=== PATIENT | male | born 1935 | race Caucasian/White ===

== ENCOUNTER → 2018-11-05 | Outpatient (CLI) | payer MEDICARE, BC ==
[~2018-11-05] MED LIST: ALDA25TA2 PO; AMLO5TAB6 PO; ASPI81TA85 PO; BAYE325T12 PO; CARV12.5 PO; CARV6.25 PO; CO Q200C10 PO; IRBE300T10 PO; OMEG12002 PO; VITA200015 PO
[2018-11-05 19:53] LABS: ALBUMIN 3.9 GM/DL (3.2-5.2); BILIRUBIN,DIRECT 0.2 MG/DL (0.0-0.2); BILIRUBIN,TOTAL 0.7 MG/DL (0.2-1.0); CHOLESTEROL RISK RATIO 3.086 (<5); THYROID STIMULATING HORMONE 1.47 uIU/ML (0.358-3.740); TOTAL PROTEIN 6.9 GM/DL (6.4-8.2)
== END ==
LOC: M ADAMS 16:20
PROVIDERS: ATTEND Internal Medicine Cardiovascular Disease
DX: E78.00 Pure hypercholesterolemia, unspecified (principal)

== ENCOUNTER → 2019-04-28 | Outpatient (REF) | payer MEDICARE, BC ==
[~2019-04-28] MED LIST changes: +ATOR40TA75 PO; +NIFE30TA7 PO; +OMEP40CA2 PO
[2019-04-28 15:05] LABS: CALCIUM LEVEL 9.4 MG/DL (8.8-10.2); CREATININE FOR GFR 1.25 MG/DL (0.70-1.30); MAGNESIUM LEVEL 2.1 MG/DL (1.8-2.4); PHOSPHORUS LEVEL 3.8 MG/DL (2.5-4.9); POTASSIUM SERUM 4.3 MEQ/L (3.5-5.1)
== END ==
LOC: M LABDRWAD 12:11
PROVIDERS: ATTEND Internal Medicine Cardiovascular Disease
DX: I11.9 Hypertensive heart disease without heart failure (principal)

== ENCOUNTER 2019-05-10 12:54 | Day surgery (SDC) | payer MEDICARE, BC ==
[~2019-05-10] VITALS: Ht 183.1 cm; Wt 73.0 kg
[2019-05-10] MEDS ORDERED: AMIODARONE HCL 360 MG/200 ML PREMIXED BAG (NEXTERONE) As Ordered ONE (13:23)
[2019-05-10] MEDS ORDERED: LIDOCAINE 1% SDV INJ 30 ML VIAL As Ordered ONE (13:23)
[2019-05-10] MEDS ORDERED: BACITRACIN PWD 50,000 UNITS VIAL As Ordered ONE (13:24)
[2019-05-10] MEDS ORDERED: ISOVUE-300 61% 50ML VIAL (Q9967) As Ordered ONE (13:24)
[2019-05-10] MEDS ORDERED: fentaNYL 100 MCG/2 ML INJECTION (J3010) As Ordered ONE (13:29)
[2019-05-10] MEDS ORDERED: ONDANSETRON 4MG/2ML VIAL (J2405) As Ordered ONE (13:29)
[2019-05-10] MEDS ORDERED: PROPOFOL 200 MG/20 ML VIAL As Ordered ONE (13:29)
[2019-05-10] MEDS ORDERED: LIDOCAINE 2% INJ 100 MG/5 ML SDV (FOR ANES.) As Ordered ONE (13:29)
[2019-05-10] MEDS ORDERED: MIDAZOLAM INJ 2 MG/2 ML VIAL (J2250) As Ordered ONE (13:29)
[2019-05-10] MEDS ORDERED: XALA0.007 OU (13:41)
[2019-05-10] MEDS ORDERED: BRIM1OPD OU (13:41)
[2019-05-10] MEDS ORDERED: VALS1TAB67 PO (13:41)
[2019-05-10] MEDS ORDERED: MULT-40 PO (13:41)
[2019-05-10] MEDS ORDERED: CLOP75TA2 PO (13:41)
[2019-05-10] MEDS ORDERED: VALS1TAB68 PO (13:41)
[2019-05-10] MEDS ORDERED: ONDANSETRON 4MG/2ML VIAL (J2405) IV PRN (18:15)
[2019-05-10] MEDS ORDERED: NITROGLYCERIN 0.4 MG SUBL TABLET SL PRN (18:15)
[2019-05-10] MEDS ORDERED: ACETAMINOPHEN TAB 650MG DOSE (2X325MG) PO PRN (18:15)
[2019-05-10] MEDS ORDERED: fentaNYL 100 MCG/2 ML INJECTION (J3010) IV PRN (18:15)
[2019-05-10] MEDS ORDERED: traMADol 50 MG TAB PO PRN (18:15)
[2019-05-10] MEDS ORDERED: LR 1,000 ML IV SCH (18:15)
[2019-05-10 18:35] VITALS: BP 161/84
--- NOTE | 2019-05-10 19:42 | RO ---
DATE OF PROCEDURE: 05/10/2019 PREOPERATIVE DIAGNOSIS: 1. Recurrent near syncope and sinus node dysfunction. 2. Frequent isolated PVCs. POSTOPERATIVE DIAGNOSIS 1. Recurrent near syncope and sinus node dysfunction. 2. Frequent isolated PVCs. OPERATIVE PROCEDURE: Implantation of permanent dual-chamber pacemaker. IMPLANTING STRUCTURAL STEEL TRADES WORKER: Shayan Denton MD ANESTHESIOLOGIST: Ricardo Peterosn MD TYPE OF ANESTHESIA: Monitored local anesthesia. CLINICAL SUMMARY This 83-year-old retired resident of [place] is well-known to my cardiology practice with ischemic, hypertensive and coronary heart disease complicated by abnormal EKG, frequent isolated PVCs (441 per hour October 2018) and sinus node dysfunction with marked sinus bradycardia who has been having recurrent episodes of near-syncope/syncope that have been fairly random. He has not fallen, but presented for follow-up visit in the office today complaining of this symptom. His heart rate was determined to be 42 beats per minute and regular. In light of his symptoms, marked sinus bradycardia and frequent PVCs implantation of permanent dual-chamber pacemaker was recommended. He has been free of other cardiovascular complaints on his current combination medical therapy. On examination, he is a somewhat slim elderly male laying comfortably on examination table. Heart rate 42 bpm and regular with irregularities. Blood pressure 148/68 supine, 146/62 sitting with legs dependent, respiratory rate 16 bpm. BMI was 21.5. Well tanned. No pallor or icterus. Normal oral moisture. Trachea midline. Jugular veins were not elevated. Slight pectus excavatum, but normal chest expansion and air entry over both lung jara with no adventitious sounds. Apical impulse was at the mid clavicular line fifth intercostal space. Heart sounds were quite distant with no audible gallops. No audible murmur. Normal carotid upstroke and volume. Normal peripheral pulses with no dependent edema. His abdomen was soft. EKG showed marked sinus bradycardia at 49 bpm with left atrial conduction disturbance, low voltages with slow R wave progression related to his body habitus versus pulmonary disease. Nonspecific ST/T-wave abnormalities that were not significantly changed from April 20, 2019. Recent chemistry showed electrolyte balance with BUN of 23, creatinine 1.25, albumin was 4.0, magnesium 2.1. Pro BNP level was normal at 144. Ultra sensitive TSH recently measured was normal. DESCRIPTION OF PROCEDURE Following informed consent with the patient in the fasting state having received Ancef 2 grams IV premedication, he was taken to the operating theater. Numerous skin electrodes were applied to facilitate continuous electrocardiographic monitoring. The left subclavian region was prepped and draped in the usual fashion. Skin was infiltrated with 1% Xylocaine and the left axillary vein was catheterized using the micropuncture technique. Two bipolar screw-in active fixation steroid eluting pacing leads were then advanced to the right ventricular apex and high right atrial appendage under fluoroscopic and electrocardiographic control. The ventricular lead ([employer], model #[id number], serial number [id number]) as stimulation threshold 0.9V / 0.4 ms / impedance 659 ohms. The R wave amplitude measured 8.1 mV. The atrial lead ([employer] model number [id number]/[id number], serial number [id number]) measurements were: Stimulation threshold 1.1V / 0.4 ms / impedance 457 ohms / P wave amplitude measured 2.3 mV. These leads were secured in position with sleeves sutured through the insertion site. They were then connected to an MRI compatible dual-chamber pulse generator ([employer], model # [id number], serial number [id number]) and appropriate DDD pacing was documented. The rate responsive feature of his device will be activated postoperatively. The device was then placed in the pocket and secured in position with a suture through the upper right-hand corner of the epoxy header. The subcutaneous tissues were approximated using a running chromic suture and the skin was closed using paco. A dry dressing was applied and the patient returned to the recovery room in good condition. Postoperative portable upright chest x-ray showed good lead placement with no pneumothorax. His EKG confirmed consistent atrially paced rhythm with spontaneous AV conduction. QRS complexes and repolarization appearance was unchanged from earlier this same day. Our plan is to monitor him overnight on telemetry and he will receive an additional three doses of Ancef IV every 8 hours. We anticipate his probable discharge tomorrow afternoon.
[2019-05-10 20:00] VITALS: BP 164/70
[2019-05-10] MEDS: BRIMONIDINE 0.1% OPHTH SOLN 5 ML OU SCH (20:43)
[2019-05-10] MEDS ORDERED: LATANOPROST 0.005% OPHTH SOLN 2.5 ML OU SCH (21:00)
[2019-05-10] MEDS ORDERED: ATORVASTATIN 20 MG TAB PO SCH (21:00)
[2019-05-10] MEDS ORDERED: VALSARTAN 80 MG TAB (DIOVAN) PO SCH (21:00)
--- NOTE | 2019-05-10 21:11 | REP ---
Chest x-ray: Single view. History: Post pacemaker implant. Findings: Portable chest x-ray demonstrates a bipolar pacemaker installed via the left side. There is no evidence of pneumothorax or hydrothorax. Heart is not enlarged. Lung jara are clear. Impression: Left sided transvenous pacemaker in place. No complication seen. Electronically Signed by Yohannes Still MD 05/10/2019 09:24 P
[2019-05-10] MEDS: ceFAZolin SOD 1 GM in D5W MINI-BAG PLUS 50 ML IV SCH (22:58)
[2019-05-10 23:59] VITALS: BP 123/67
[2019-05-11 04:00] VITALS: BP 133/64
[2019-05-11] MEDS: ceFAZolin SOD 1 GM in D5W MINI-BAG PLUS 50 ML IV SCH ×2 (06:42→14:54)
[2019-05-11 08:00] VITALS: BP 121/62
[2019-05-11 08:34] VITALS: BP 121/62
[2019-05-11] MEDS: BRIMONIDINE 0.1% OPHTH SOLN 5 ML OU SCH (08:34)
[2019-05-11] MEDS ORDERED: CLOPIDOGREL 75 MG TAB PO SCH (09:00)
[2019-05-11] MEDS ORDERED: ASPIRIN 81 MG CHEW TABLET PO SCH (09:00)
[2019-05-11] MEDS ORDERED: VALSARTAN 80 MG TAB (DIOVAN) PO SCH (09:00)
--- NOTE | 2019-05-11 10:12 | REP ---
REASON FOR EXAM: Postop pacemaker insertion. COMPARISON: 04/30/2019. There is a dual chamber bipolar pacemaker device in place. The leads are appropriate and contiguous in appearance and unchanged. The cardiomediastinal silhouette is unchanged. No new abnormal lung opacities have developed. The pleural angle remain sharp. The osseous structures are stable and intact. IMPRESSION: Status-post pacemaker insertion. There is no acute cardiopulmonary disease. Electronically Signed by Chase Fang DO 05/11/2019 03:28 P
[2019-05-11 12:00] VITALS: BP 80/40
[2019-05-11 13:00] VITALS: BP 114/42
[2019-05-11 16:00] VITALS: BP 117/63
[2019-05-11] MEDS ORDERED: VALS1TAB68 PO (17:07)
[2019-05-11] MEDS ORDERED: VALS1TAB67 PO (17:09)
--- NOTE | 2019-05-11 17:50 | IPN ---
DATE: 05/11/2019 CARDIOLOGY PROGRESS NOTE SUBJECTIVE: The patient has been up today ambulating without lightheadedness, dyspnea or chest discomfort. Has had only minimal incisional discomfort. Anxious to be discharged home. OBJECTIVE: Pleasant, slim elderly male laying comfortably. Heart rate 60 bpm and regular, blood pressure 117/63. Respiratory rate 16 per minute, O2 saturation 97% on room air. Afebrile. No pallor or cyanosis. Normal oral moisture. Trachea midline. Neck veins were not elevated. Slim with increased anteroposterior chest diameter, but adequate chest expansion. His incision is healing well with some ecchymosis related to his combination aspirin and Plavix therapies. No dependent edema. PRECISION LAYOUT WORKER: It shows mostly atrially paced rhythm with spontaneous AV conduction. Has not had pacemaker mediated tachycardia since last evening when I reprogrammed his post ventricular atrial refractory. A very brief run of nonsustained PSVT was observed and was asymptomatic. CHEST X-RAY: PA and left lateral study taken earlier today was reviewed independently and shows stable lead position with no pneumothorax. Lung jara are hyperinflated with no infiltrate or pleural effusion. EKG: Tracing reviewed earlier today shows consistent atrially paced rhythm at 65 bpm with spontaneous AV conduction. QRS complexes did not appear changed from his prior tracing yesterday. COMPLETE PACEMAKER INTERROGATION: This showed excellent intracardiac electrograms and pacing thresholds. He has ample battery voltage. We did increase his low pacing rate to 70 beats per minute. He remains with his rate response intact. Has AV delays programmed 150 milliseconds for sensing and 204 pacing with intrinsic conduction search up to 200 milliseconds to preserve spontaneous AV conduction as much as possible. IMPRESSION/PLAN: 1. Sinus node dysfunction: Has been up and ambulating without any further problems with positional lightheadedness with his normal physiological heart rate. His pacemaker is functioning appropriately and incision is healing properly. We did make a subtle program change today. 2. Frequent isolated PVCs: With his restored physiological heart rate, we have noticed considerably less ectopic activity. 3. Abnormal EKG /CABG/post PTCA: Has been up ambulating without anginal chest discomfort. Serial EKGs do not show any repolarization changes with his increased rate. Remains on protective combination angiotensin receptor carrie, statin therapy and aspirin with Plavix. 4. Hypertensive heart disease (benign without heart failure): No symptoms or signs of congestion. Current blood pressure is well-controlled. Prior problem with systolic hypertension has resolved with physiological heart rate. Chest x-ray Shows clear lung jara. At this point we will allow him to go home. We have encouraged him to perform activities of daily living except for light activities with his left arm and avoiding getting his incision wet until his paco are removed in our office in 7 to 10 days time. His diet will continue, no added salt, low fat, low cholesterol. Medications will now be: valsartan 160 mg by mouth twice a day, atorvastatin 40 mg at bedtime (q.h.s.), aspirin 81 mg daily, clopidogrel 75 mg daily, multivitamin one tablet twice a day, omega fatty acid 1 capsule daily, vitamin D3 5000 units daily with Alphagan 0.1% eye drops 1 drop each eye daily and Xalatan 0.005% eye drops 1 drop each eye at bedtime (q.h.s.). We have encouraged his contacting us should he notice any abnormal erythema, swelling or discharge. ROSALINO
--- NOTE | 2019-05-13 15:45 | ECGEPIP ---
[facility] Test Date: 2019-05-10 Pat Name: ORVILLE PUGA Department: Room: - Gender: Male Ophthalmic Aide: : 1935 Requested By: Shayan Denton Order Number: [id number] Reading MD: Haroldo Burris Measurements Intervals [place] Rate: 65 P: 78 ID: [id number] QRS: 23 QRSD: 90 T: 48 QT: 409 QTc: 428 Interpretive Statements ELECTRONIC ATRIAL PACEMAKER PRIOR TRACING IN THE SYSTEM ON 09/06/2016 AT 15:55, SINUS BRADYCARDIA AT 43 BEATS PER MINUTE WAS NOTED Electronically Signed on 05-13-2019 15:45:26 EDT by Haroldo Burris
--- NOTE | 2019-05-13 15:46 | ECGEPIP ---
[facility] Test Date: 2019-05-11 Pat Name: ORVILLE PUGA Department: Room: [place] [address] Gender: Male School Psychologist Assistant: STELLA : 1935 Requested By: Shayan Denton Order Number: [id number] Reading MD: Haroldo Burris Measurements Intervals [place] Rate: 62 P: 66 [place]: 166 QRS: 58 QRSD: 90 T: 54 QT: 382 QTc: 390 Interpretive Statements SINUS RHYTHM WITH OCCASIONAL VENTRICULAR PREMATURE COMPLEXES MOST RECENT TRACING ON 05/10/2019 AT 18:12. ATRIAL PACEMAKER ACTIVITY WAS PRESENT Electronically Signed on 05-13-2019 15:46:34 EDT by Haroldo Burris
== END 2019-05-11 17:49 | disposition home or self-care (01) ==
LOC: M SDC 12:54 → M PCU 18:35 → M SDC 05-11 17:49
PROVIDERS: ATTEND Internal Medicine Cardiovascular Disease
DX: I49.5 Sick sinus syndrome (principal); I49.49 Other premature depolarization; I25.10 Atherosclerotic heart disease of native coronary artery without angina pectoris; I10 Essential (primary) hypertension; E78.49 Other hyperlipidemia; Z79.82 Long term (current) use of aspirin; Z79.01 Long term (current) use of anticoagulants; Z79.899 Other long term (current) drug therapy
CPT/HCPCS: 33208; 71045; 71046; 76000; 93005; 96365; 96366; C1785; C1898; J0690; J2250; J2405; J3010

== ENCOUNTER → 2019-05-15 | Outpatient (REF) | payer MEDICARE, BC ==
[~2019-05-15] MED LIST changes: +BRIM1OPD OU; +CLOP75TA2 PO; +MULT-40 PO; +VALS1TAB67 PO; +VALS1TAB68 PO; +XALA0.007 OU
[2019-05-15 15:00] LABS: EOS % 0.8 % (0.0-3.0); HEMATOCRIT 35.2 % (42.0-52.0); HEMOGLOBIN 11.7 g/dl (13.5-17.5); LYMPH # 0.5 10^3/uL (1.5-4.5); LYMPH % 12.3 % (24.0-44.0); MEAN CORPUSCULAR HEMOGLOBIN 30.1 pg (27.0-33.0); MEAN CORPUSCULAR HGB CONC 33.2 g/dl (32.0-36.5); MEAN CORPUSCULAR VOLUME 90.5 fl (80.0-96.0); MONO # 0.4 10^3/uL (0.0-0.8); MONO % 10.2 % (0.0-5.0); NEUTROPHILS # 2.9 10^3/uL (1.8-7.7); NEUTROPHILS % 75.4 % (36.0-66.0); PLATELET COUNT, AUTOMATED 123 10^3/uL (150-450); RED BLOOD COUNT 3.89 10^6/uL (4.30-6.10); WHITE BLOOD COUNT 3.8 10^3/uL (4.0-10.0)
[2019-05-15 16:03] LABS: ERYTHROCYTE SEDIMENTATION RATE 21 mm/hr (0-20)
== END ==
LOC: M LAB REF 14:46
PROVIDERS: ATTEND Physician Assistant
DX: Z95.0 Presence of cardiac pacemaker (principal); Z79.82 Long term (current) use of aspirin; Z79.899 Other long term (current) drug therapy

== ENCOUNTER → 2019-05-16 | Outpatient (REF) | payer MEDICARE, BC | LOC: M LABDRWAD 14:39 | PROVIDERS: ATTEND Physician Assistant | DX: Z95.0 Presence of cardiac pacemaker (principal) ==

== ENCOUNTER → 2021-07-23 | Outpatient (CLI) | payer MEDICARE, BC ==
[~2021-07-23] MED LIST changes: +AMLO1TAB24 PO; -AMLO5TAB6 PO; -ASPI81TA85 PO; +ASPI81TA86 PO; -IRBE300T10 PO; +IRBE300T7 PO; +NIFE1TAB52 PO; -NIFE30TA7 PO; -OMEP40CA2 PO; +OMEP40CA4 PO
[2021-07-23 12:21] LABS: BASO # 0.1 10^3/uL (0.0-0.2); BASO % 0.8 % (0.0-1.0); EOS # 0.1 10^3/uL (0.0-0.5); EOS % 1.2 % (0.0-3.0); HEMATOCRIT 47.3 % (42.0-52.0); HEMOGLOBIN 15.6 g/dl (13.5-17.5); LYMPH # 0.7 10^3/uL (1.5-5.0); LYMPH % 10.2 % (24.0-44.0); MEAN CORPUSCULAR HEMOGLOBIN 30.1 pg (27.0-33.0); MEAN CORPUSCULAR VOLUME 91.1 fl (80.0-96.0); MONO # 0.4 10^3/uL (0.0-0.8); MONO % 6.2 % (2.0-8.0); NEUTROPHILS # 5.2 10^3/uL (1.5-8.5); NEUTROPHILS % 81.3 % (36.0-66.0); PLATELET COUNT, AUTOMATED 163 10^3/uL (150-450); RED BLOOD COUNT 5.19 10^6/uL (4.30-6.10); WHITE BLOOD COUNT 6.5 10^3/uL (4.0-10.0)
== END ==
LOC: M PLALAB 09:56
PROVIDERS: ATTEND Internal Medicine Cardiovascular Disease
DX: I48.0 Paroxysmal atrial fibrillation (principal); I50.42 Chronic combined systolic (congestive) and diastolic (congestive) heart failure; I11.0 Hypertensive heart disease with heart failure; I08.0 Rheumatic disorders of both mitral and aortic valves

== ENCOUNTER → 2024-03-22 | Outpatient (CLI) | payer MEDICARE, BC ==
[~2024-03-22] MED LIST changes: +IRBE300T25 PO; -IRBE300T7 PO
== END ==
LOC: M WUC 10:21
PROVIDERS: ATTEND Physician Assistant
DX: M19.041 Primary osteoarthritis, right hand (principal); L03.011 Cellulitis of right finger

== ENCOUNTER → 2024-12-05 | Outpatient (CLI) | payer MEDICARE, BC ==
[~2024-12-05] MED LIST changes: -BAYE325T12 PO; +BAYE325T2 PO
== END ==
LOC: M CARPUL 14:57
PROVIDERS: ATTEND Registered Nurse
DX: I35.1 Nonrheumatic aortic (valve) insufficiency (principal); I50.30 Unspecified diastolic (congestive) heart failure; I08.0 Rheumatic disorders of both mitral and aortic valves; I37.1 Nonrheumatic pulmonary valve insufficiency